=== PATIENT | female | born 1960 | race Caucasian/White ===

== ENCOUNTER → 2017-09-10 | Outpatient (CLI) | payer MEDICAID | LOC: FIMAGING 14:59 | PROVIDERS: ATTEND Registered Nurse | DX: Z12.31 Encounter for screening mammogram for malignant neoplasm of breast (principal) ==

== ENCOUNTER 2017-12-21 05:44 | Observation (INO) | payer MEDICAID ==
[2017-12-21] MEDS ORDERED: ceFAZolin 2 GM/DEXTROSE 100 ML IV ONE (06:19)
[2017-12-21] MEDS ORDERED: LR 1,000 ML IV ONE (06:40)
[2017-12-21] MEDS ORDERED: MIDAZOLAM 2 MG/2 ML VIAL ONE (06:54)
[2017-12-21] MEDS ORDERED: BUPIVACAINE 0.5% 30 ML SDV ONE (07:00)
--- NOTE | 2017-12-21 07:08 | PDHPUP ---
History & Physical Update H&P update statement: This history and physical update is based on an assessment of the patient which was completed after admission or registration (within 24 hours), but prior to the surgery/procedure. H&P update: H&P reviewed & patient examined, no change in patient's condition since H&P completed
[2017-12-21] MEDS ORDERED: PROPOFOL/EMULSION 500 MG/50 ML BOTTLE IV ONE (07:16)
[2017-12-21] MEDS ORDERED: ONDANSETRON 4 MG/2 ML VIAL ONE (07:31)
[2017-12-21] MEDS ORDERED: RANITIDINE 50 MG/2 ML VIAL ONE (07:31)
[2017-12-21] MEDS ORDERED: METOCLOPRAMIDE 10 MG/2 ML VIAL ONE (07:31)
[2017-12-21] MEDS ORDERED: LR 500 ML IV PRN (07:49)
[2017-12-21] MEDS ORDERED: MEPERIDINE 25 MG/0.5 ML AMP IVP PRN (07:49)
[2017-12-21] MEDS ORDERED: NALOXONE HCL 0.4 MG/ML INJ IVP PRN (07:49)
[2017-12-21] MEDS ORDERED: fentaNYL 100 MCG/2 ML INJ IVP PRN (07:49)
[2017-12-21] MEDS ORDERED: ONDANSETRON 4 MG/2 ML VIAL IVP PRN (07:49)
[2017-12-21] MEDS ORDERED: DIAZEPAM 5 MG/ML 1 ML SYR IVP PRN (07:49)
[2017-12-21] MEDS ORDERED: ALBUTEROL 3 ML DEYVIAL IH PRN (07:49)
--- NOTE | 2017-12-21 07:49 | PDANEPAE ---
ANE Past Medical History - Cardiovascular History Hx Hypertension: No Hx Arrhythmias: No Hx Chest Pain: No Hx Coronary Artery / Peripheral Vascular Disease: No Hx CHF / Valvular Disease: No Hx Palpitations: No - Pulmonary History Hx COPD: No Hx Asthma/Reactive Airway Disease: No Hx Recent Upper Respiratory Infection: No Hx Oxygen in Use at Home: No Hx Sleep Apnea: No Sleep Apnea Screening Result - Last Documented: Negative - Neurologic History Hx Cerebrovascular Accident: No Hx Seizures: No Hx Dementia: No - Endocrine History Hx Diabetes: No - Renal History Hx Renal Disorders: No - Liver History Hx Hepatic Disorders: No - Neurological & Psychiatric Hx Hx Neurological and Psychiatric Disorders: Yes Neurological / Psychiatric History Comment: insomnia- recently started trazodone - Cancer History Hx Cancer: No - Congenital Disorder History Hx Congenital Disorders: No - GI History Hx Gastrointestinal Disorders: No - Other Health History Other Health History: wears glasses at night for driving - Chronic Pain History Chronic Pain: Yes (bilateral feet) - Surgical History Prior Surgeries: right broken ankle repair 30 yrs ago. ventral hernia 16 yrs ago ANE Review of Systems Review of Systems: - Exercise capacity METS (RN): 4 METS ANE Patient History - Allergies Allergies/Adverse Reactions: acetaminophen [From Vicodin] Allergy (Verified 12/21/17 06:21) make me really sick azithromycin Allergy (Verified 12/21/17 06:21) make me really sick hydrocodone [From Vicodin] Allergy (Verified 12/21/17 06:21) make me really sick - Home Medications Home Medications: Herbals/Supplements -Info Only 12/04/17 [Last Taken 12/07/17] Ibuprofen PRN 12/04/17 [Last Taken 12/07/17] Tylenol PRN 12/04/17 [Last Taken 12/18/17] traZODone HS 12/04/17 [Last Taken 12/07/17] - NPO status NPO Since - Liquids (Date): 12/21/17 NPO Since - Liquids (Time): 05:00 NPO Since - Solids (Date): 12/20/17 NPO Since - Solids (Time): 19:30 - Smoking Hx Smoking Status: Former smoker - Family Anes Hx Family Hx Anesthesia Complications: none ANE Labs/Vital Signs - Vital Signs Blood Pressure: 114/78 Heart Rate: 67 Respiratory Rate: 16 O2 Sat (%): 90 Height: 165.1 cm Weight: 53.07 kg ANE Physical Exam - Airway Neck exam: FROM Mallampati Score: Class 1 Mouth exam: normal dental/mouth exam - Pulmonary Pulmonary: no respiratory distress, no rales or rhonchi, clear to auscultation - Cardiovascular Cardiovascular: regular rate and rhythym, no murmur, rub, or gallop - ASA Status ASA Status: III ANE Anesthesia Plan Anesthesia Plan: GA w LMA [facility] Anesthesia: single shot NB, adductor canal FNB, popliteal SNB
[2017-12-21] MEDS ORDERED: PROPOFOL 200 MG/20 ML VIAL ONE ×2 (08:23→09:39)
--- NOTE | 2017-12-21 10:28 | POSTOPPROG ---
Post Op Note Date of Operation: 12/21/17 Surgeon: Be Rahman Sales Management Intern: Dago Hodge Anesthesia: GET(General Endotracheal) Pre-op Diagnosis: Left foot djd and deformity Post-op Diagnosis: same Indication: above Procedure: L midfoot fusion, MDCO, rosenda, 3rd h toe correction, 4th sm Inf/Abcess present in the surg proc area at time of surgery?: No EBL: 50-100
[2017-12-21] MEDS ORDERED: NS 1,000 ML IV SCH (10:30)
[2017-12-21] MEDS ORDERED: HYDROmorphone HCL 0.5 MG/0.5 ML SYR IVP PRN (10:30)
--- NOTE | 2017-12-21 11:09 | POSTANESTH ---
Post Anesthetic Evaluation Cardiovascular Status: Normal, Stable, Similar to Pre-Op Cond Respiratory Status: Normal, Stable, Similar to Pre-op Cond. Level of Consciousness/Mental Status: Moderately Sleepy Pain Control: Adequate, Prn Tx Ordered Nausea/Vomiting Control: Adequate, Prn Tx Ordered Complications Possibly Related to Anesthesia: None Noted
[2017-12-21] MEDS: oxyCODONE IR 5 MG TAB PO PRN ×2 (14:41→19:43)
[2017-12-21] MEDS: ceFAZolin 2 GM/DEXTROSE 100 ML IV SCH ×2 (14:42→21:42)
--- NOTE | 2017-12-21 15:05 | GOP ---
DATE OF OPERATION: 12/21/2017 SURGEON: Be Rahman MD DEPARTMENT HEAD: Mio Hodge, BRAYDENA, LSA ANESTHESIA: General with popliteal and saphenous block. PREOPERATIVE DIAGNOSIS: 1. Left midfoot degenerative joint disease. 2. Left pes planovalgus. 3. Left gastroc contracture. 4. Left valgus heel. 5. Left 2, 3, 4, 5 hammertoes. 6. Left metatarsalgia. POSTOPERATIVE DIAGNOSIS: 1. Left midfoot degenerative joint disease. 2. Left pes planovalgus. 3. Left gastroc contracture. 4. Left valgus heel. 5. Left 2, 3, 4, 5 hammertoes. 6. Left metatarsalgia. PROCEDURE PERFORMED: 1. Left calf Mary Ann gastroc recession. 2. Left medial calcaneal displacement osteotomy. 3. Left midfoot fusion of 1st, 2nd, and 3rd tarsometatarsal joints and inner cuneiform joints. 4. Left 3rd hammertoe correction. 5. Left 4th metatarsal SMO. FINDINGS: ESTIMATED BLOOD LOSS: 50 mL. INDICATIONS: A 56-year-old female with significant pain from her foot deformity , arthritis, and toe deformity. She has failed nonoperative treatment and desired surgical intervention. We discussed the surgery. We discussed risks of nonunion, particularly given her smoking history (we did make her quit smoking and she abstained from nicotine for 1 month prior to surgery and says she is done with nicotine); malunion; malposition; arthritis; nerve injury; wound complications; continued pain; deformity; blood clot; amputation. She elected to proceed. Informed consent was obtained. All questions were answered. She was marked preoperatively. DESCRIPTION OF PROCEDURE: The patient was taken to the operative suite, sterilely prepped and draped in the usual fashion. Time-out was performed verifying site, side, location and agreed on by members of the team. Tourniquet was inflated after Esmarch. Total tourniquet time was 1 hour and 15 minutes. I made an incision over the medial calf. I dissected down to the gastroc fascia, protecting neurovascular structures and releasing the gastroc fascia obtaining release of the contracture. Her Achilles mechanism remained intact. Next, I made an incision over the lateral heel. Dissected down, protecting the neurovascular structures. I isolated her lateral calcaneus and cut this. I shifted this medially, pinned this, checked this fluoroscopically and clinically. I then placed 2 screws across this to correct her box heel deformity. Next, I exposed the midfoot through 2 incisions over the 1st and 3rd tarsometatarsal joints, protecting neurovascular structures getting down to this. These were extremely arthritic with large dorsal osteophytes. I removed all the dorsal osteophytes and used some of this as bone graft. I mobilized the joints and prepared these with a combination of saws, rongeurs, K-wires for drilling holes in the bone, and then also prepared the intercuneiform joints. I then exposed the 3rd hammertoe and resected a portion of the proximal phalanx. I exposed the 4th metatarsal and performed an SMO shortening this and changing some of the angulation from her previous fracture. Held this with a snap-off screw. I used trials and selected a 6 cotton wedge. I then soaked this for 10 minutes. Then I placed this in the 1st ray. I then used a compressive device to get compression and help shorten the 2nd ray and correct her deformity, plantar flexing both rays. I then placed a 5.0 headless compression screw across the intercuneiform joints while holding this in compression with a clamp. I then placed a headless 4.0 compression screw across the 1st tarsometatarsal joint, holding this in compression and squeezing the graft into place. I then placed a guide pin across the 2nd ray, had this plantar flexed and shortened it in compression, and then placed a 4.0 headless screw across this. I then used the same technique on the 3rd and placed a headless compression screw across this. I felt that the good stable position and had corrected the deformity. I made an incision and used the alice plate over the 1st and 2nd metatarsal joints for fracture fixation and stability, and this was placed. I then pinned the 3rd toe to correct hammertoe deformity with a K-wire. Final x-rays were taken. Clinically, I feel like I corrected her deformity. X-ray showed good hardware placement, good surgical correction of her deformity, and good compression across the joint. The tourniquet was released. Hemostasis was obtained. Closed with a combination of 2-0 Vicryl, 3-0 Vicryl, 3-0 and 4-0 nylon, 3-0 Stratafix, Dermabond. She was placed in sterile dressings and a splint, taken to PACU in stable condition. IMPLANTS: Arthrex 5.0 and 4.0 headless compression screws in the mid foot, alice plate, K-wire, and Arthrex snap-off screw. COMPLICATIONS: None. DRAINS: None. CONDITION: Stable. /[id number]/MODL MTDD
[2017-12-21] MEDS: ONDANSETRON 4 MG/2 ML VIAL IVP PRN ×2 (15:28→19:52)
[2017-12-22] MEDS: ONDANSETRON 4 MG/2 ML VIAL IVP PRN (02:17)
[2017-12-22] MEDS: oxyCODONE IR 5 MG TAB PO PRN (02:17)
[2017-12-22] MEDS ORDERED: traMADol 50 MG TAB PO PRN (07:56)
[2017-12-22] MEDS: ACETAMINOPHEN 500 MG TAB PO SCH ×2 (08:03→15:46)
[2017-12-22] MEDS: HYDROmorphONE/DILAUDID 2 MG TAB PO PRN ×4 (08:57→19:15)
[2017-12-22] MEDS: PROMETHAZINE HCL 25 MG TAB PO PRN ×3 (08:57→19:16)
[2017-12-22] MEDS ORDERED: ENOXAPARIN 40 MG/0.4 ML SYR SC SCH (09:00)
--- NOTE | 2017-12-22 10:15 | SOAPPROG ---
SOAP Progress Note Assessment/Plan: Assessment: L midfoot fusion MDCO Plan: Pain seems to be improving with oral dilaudid elevate ice non wt bearing left leg keep dry 12/22/17 10:13 Subjective: pain mostly medial Objective: Vital Signs Temp Pulse Resp BP Pulse Ox 36.6 C 70 16 98/60 L 94 12/22/17 07:38 12/22/17 07:38 12/22/17 07:38 12/22/17 07:38 12/22/17 07:38 12/21/17 12/22/17 12/23/17 05:59 05:59 05:59 Intake Total 2490 500 Output Total 2360 250 Balance 130 250 splint cdi good cap refill ICD10 Worksheet Patient Problems: Problems Problem Status Onset Degenerative joint disease, foot, left Acute - ICD10 Problem Qualifiers (1) Degenerative joint disease, foot, left Qualifiers: Osteoarthritis type: primary Qualified Code(s): M19.072 - Primary osteoarthritis, left ankle and foot
[2017-12-22] MEDS ORDERED: ROPIVACAINE 0.2% 1,100 MG in PUMP SET 1 EA NB SCH (10:30)
[2017-12-22] MEDS ORDERED: MIDAZOLAM 2 MG/2 ML VIAL ONE (10:57)
[2017-12-22] MEDS ORDERED: LIDOCAINE 2% 2 ML INJ ONE ×10 (11:00→11:06)
[2017-12-22] MEDS ORDERED: ROPIVACAINE HCL 150 MG/30 ML INJ ONE (11:00)
[2017-12-22] MEDS ORDERED: MIDAZOLAM 2 MG/2 ML VIAL IVP ONE (11:45)
--- NOTE | 2017-12-22 11:45 | PDPAINCON ---
Pain Management Consultation Patient referred by : Josiah - Subjective Pain at rest (/10): 6 Pain is: high, but manageable Activity: unable to ambulate - Assessment/Plan Additional comments: Pt s/p left ankle fusion 12/21/17 with SS pop/saphenous nerve blocks with good effect. Coverage wore off around 0100 today, now c/s for placement of pop sciatic catheter and SS adductor canal block prior to d/c home.
--- NOTE | 2017-12-22 15:00 | ASMTCMCOM ---
CM Note CM Note Notes: Pt had planned ankle/foot surgery. PT rec home safety eval for stairs, pt amenable and chooses [facility] (gave the referral information to on [facility] call RN Rosa Maria). Updated MD about PT rec, he will input orders this evening. Pt has a friend staying with her a week and lives with a roommate. D/c plan of care: Home with [facility] PT Date Signed: 12/22/2017 02:59 PM Electronically Signed By:SUNNY Bradshaw
[2017-12-22 15:29] VITALS: BP 101/66
--- NOTE | 2017-12-22 19:59 | PDIAF ---
- Diagnosis Diagnosis: left foot djd Code Status: Full Code - Medication Management Discharge Medications: Medications to Continue on Transfer traZODone [traZODONE 100MG (*)] 100 mg PO HS 12/04/17 [Last Taken 12/07/17] hydrOXYzine HCL [hydrOXYzine HCL (RX)] 25 - 50 mg PO Q6HRS PRN 12/21/17 [Last Taken Unknown] traMADol [Ultram 50 mg (*)] 50 mg PO Q6HRS PRN 12/21/17 [Last Taken Unknown] Acetaminophen [Tylenol ES 500 mg (*)] 1,000 mg PO TID tab 12/22/17 [Last Taken Unknown] Aspirin [Aspirin 325 mg (*)] 325 mg PO DAILY #30 tab 12/22/17 [Last Taken Unknown] HYDROmorphone HCL [Dilaudid 2 mg (*)] 2 - 4 mg PO Q4HRS PRN #30 tab 12/22/17 [ Last Taken Unknown] Promethazine HCl [Phenergan 25mg (*)] 12.5 mg PO Q6HRS PRN #30 tab 12/22/17 [ Last Taken Unknown] Discharge Medications: Refer to the Discharge Home Medication list for PRN reason. - Orders Services needed: Home Care, Physical Therapy Home Care Face to Face: I certify that this patient was under my care and that I had the required [id number] encounter meeting the encounter requirements on the discharge day. My findings support the fact that the patient is homebound as defined in Home Care Face to Face Continued: CMS Chapter 7 Medicare Benefits Manual 30.1.1 , The condition of the patient is such that there exists a normal inability to leave home and consequently, leaving home would require a considerable and taxing effort. Diet Recommendation: no restrictions on diet Diet Texture: Regular Texture Diet Additional Instructions: elevate ice non wt bearing left leg keep dry - Follow Up Care Current Providers and Referrals: Be Rahman MD [Medical Doctor] - follow up in 1 week Gabriela Moya, RN, SHAMPOO TECHNICIAN [Primary Care Provider] -
--- NOTE | 2017-12-24 11:16 | GDS ---
REASON FOR HOSPITALIZATION: She is admitted after left foot reconstruction, midfoot fusion, calcanea l osteotomy, Mary Ann procedure, and hammertoe correction. HOSPITAL COURSE: She had difficulty with pain management at first, but she was able to stabilize her pain on a regimen of oral Dilaudid, and she met criteria for discharge home. She was sent home with a prescription for oral Dilaudid. She was given an aspirin a day for DVT prop hylaxis, 25 mg per day for 1 month. She was started on her previous home medications. She also has Ultram to wean off when she is done with the pain medication. She was told to ice and elevate this a nd be nonweightbearing. CONSULTING PHYSICIANS: None. PROCEDURES: As above. CONDITION ON DISCHARGE: Stable. FOLLOWUP: She will follow up in 1 week, as scheduled, for a wound check. She will call or come back to the hospital if she has bleeding, drainage, chest pain, shortness of breath, or other difficultie s. /[id number]/MODL
== END 2017-12-22 20:00 | disposition home or self-care (01) ==
LOC: F3N 05:44 → EDSTATUS 07:15 → F3N 11:11
PROVIDERS: ADMIT Orthopaedic Surgery; ATTEND Orthopaedic Surgery
DX: M19.072 Primary osteoarthritis, left ankle and foot (principal); M20.5X2 Other deformities of toe(s) (acquired), left foot; M62.462 Contracture of muscle, left lower leg
CPT/HCPCS: 27687; 28270; 28730; 97116; 97161; 97165; C1769; G0378; C1713; C1762; J0690; J1170; J1650; J2250; J2270; J2405; J2704; J2765; J2780; J2795

== ENCOUNTER → 2018-07-19 | Outpatient (CLI) | payer MEDICAID | LOC: FIMAGING 07:22 | PROVIDERS: ATTEND Registered Nurse | DX: R10.33 Periumbilical pain (principal) ==